=== PATIENT | male | born 1960 | race African-American/Black ===

== ENCOUNTER 2022-09-19 23:28 | Emergency (ER) | payer OTHER ==
[2022-09-19 23:48] VITALS: RESP 18; TEMP 98.1; BMI 29.7
[2022-09-20] MEDS ORDERED: LIDOCAINE 5% TOPICAL PATCH TP ONE (01:35)
[2022-09-20] MEDS ORDERED: KETOROLAC TROMETHAMINE 30 MG/1 ML VIAL IM ONE (01:35)
[2022-09-20] MEDS ORDERED: DEXAMETHASONE SOD PHOSPHATE 10 MG/1 ML VIAL IM ONE (01:39)
[2022-09-20] MEDS ORDERED: DEXAMETHASONE SOD PHOSPHATE 10 MG/1 ML VIAL ONE (01:50)
[2022-09-20] MEDS ORDERED: LIDOCAINE 5% TOPICAL PATCH ONE (01:50)
[2022-09-20] MEDS ORDERED: KETOROLAC TROMETHAMINE 30 MG/1 ML VIAL ONE (01:50)
[2022-09-20 03:22] VITALS: BP 152/68; PULSE 79
[2022-09-20] MEDS ORDERED: LIDOCAINE PATCH REMOVAL MC SCH (22:00)
== END 2022-09-20 03:22 | disposition home or self-care (01) ==
LOC: JER 23:28
PROC: 3E023GC Introduction of Other Therapeutic Substance into Muscle, Percutaneous Approach (ICD-10-PCS; principal; 2022-09-19)
DX: M54.16 Radiculopathy, lumbar region (principal); M54.32 Sciatica, left side
CPT/HCPCS: 0241U-QW; 99284-25; J1100